=== PATIENT | male | born 1970 | race African-American/Black ===

== ENCOUNTER 2022-09-01 21:12 | Inpatient (IN) | payer OTHER ==
[~2022-09-01] VITALS: Ht 157.5 cm; Wt 74.8 kg
[2022-09-01] MEDS ORDERED: ASPIRIN 81MG TABLET PO ONE (21:30)
[2022-09-01 23:01] LABS: BASOPHILS % 0.5 % (0.0-2.0); EOSINOPHILS % 0.2 % (0.0-5.0); HEMATOCRIT. 46.6 % (42.0-52.0); LYMPHOCYTES % 8.2 % (20.0-50.0); MEAN CORPUSCULAR HEMOGLOBIN 32.4 pg (28.0-32.0); MEAN CORPUSCULAR VOLUME 88.8 fL (80.0-94.0); MEAN PLATELET VOLUME 8.4 fl (7.4-10.4); MONOCYTES % 8.1 % (2.0-8.0); PLATELET 241 x1000/uL (130-400); RED BLOOD CELL COUNT 5.25 mill/uL (4.7-6.1); RED CELL DISTRIBUTION WIDTH 12.8 % (11.6-14.6)
[2022-09-01 23:08] LABS: CHLORIDE 98 mEq/L (98-107)
[2022-09-01 23:09] LABS: PARTIAL THROMBOPLASTIN TIME 28.2 sec (23.4-31.0); PROTHROMBIN TIME 10.9 sec (9.6-11.0)
[2022-09-02] MEDS ORDERED: ALPRAZOLAM 0.5 MG TABLET PO ONE (00:45)
[2022-09-02] MEDS ORDERED: ALPRAZOLAM 0.25 MG TABLET PO NR (01:30)
[2022-09-02] MEDS ORDERED: HYDROCODONE/ACETAMINOPHEN 5/325MG TABLET PO ONE (03:15)
[2022-09-02] MEDS ORDERED: IPRATROPIUM/ALBUTEROL 0.5-3(2.5)MG/3ML NEB HHN PRN (07:15)
[2022-09-02] MEDS ORDERED: ACETAMINOPHEN 325MG TABLET PO PRN ×2 (07:15)
[2022-09-02] MEDS ORDERED: GUAIFENESIN 200MG/10ML SUGAR FREE UDC PO PRN (07:15)
[2022-09-02] MEDS ORDERED: DOCUSATE SODIUM 100MG CAPSULE PO PRN (07:15)
[2022-09-02] MEDS ORDERED: MAGNESIUM/ALUMINUM HYDROXIDE/SIMETHICONE 30ML UDC PO PRN (07:15)
[2022-09-02] MEDS ORDERED: CLONIDINE 0.1MG TABLET PO PRN ×2 (07:15→20:45)
[2022-09-02] MEDS ORDERED: ONDANSETRON HCL 4MG/2ML INJ IV PRN (07:15)
[2022-09-02] MEDS ORDERED: AZITHROMYCIN 500 MG TABLET PO NR (11:00)
[2022-09-02] MEDS ORDERED: OXYMETAZOLINE HCL NASAL SPRAY 15ML BOTHNSTRLS PRN (13:30)
[2022-09-02] MEDS ORDERED: HYDROCODONE/ACETAMINOPHEN 5/325MG TABLET PO PRN (13:30)
[2022-09-02 13:42] VITALS: BP 126/78
[2022-09-02 13:53] VITALS: BP 126/78
[2022-09-02] MEDS: LISINOPRIL 2.5MG TABLET PO SCH (14:17)
[2022-09-02] MEDS: ENOXAPARIN 40MG/0.4ML SYR SUBCUT SCH (14:17)
[2022-09-02] MEDS ORDERED: LIP40 PO (14:59)
[2022-09-02] MEDS ORDERED: LISI2.5T47 PO (14:59)
[2022-09-02 16:00] VITALS: BP 131/75
[2022-09-02] MEDS ORDERED: NALOXONE HCL 0.4MG/ML VIAL IV PRN (17:15)
[2022-09-02 20:00] VITALS: BP 108/66
[2022-09-02] MEDS ORDERED: AMLODIPINE 10MG TABLET PO SCH (20:37)
[2022-09-02] MEDS ORDERED: ATORVASTATIN CALCIUM 40MG TABLET PO SCH (21:00)
[2022-09-02] MEDS ORDERED: FAMOTIDINE 20MG TABLET PO SCH (21:00)
[2022-09-03] VITALS: BP 133/77
[2022-09-03 04:00] VITALS: BP 125/78
[2022-09-03 06:35] LABS: BASOPHILS % 0.7 % (0.0-2.0); EOSINOPHILS % 3.4 % (0.0-5.0); HEMATOCRIT. 45.5 % (42.0-52.0); HEMOGLOBIN. 16.2 g/dL (14.0-18.0); LYMPHOCYTES % 16.2 % (20.0-50.0); MEAN CORPUSCULAR HEMOGLOBIN 32.1 pg (28.0-32.0); MEAN CORPUSCULAR VOLUME 89.9 fL (80.0-94.0); MEAN PLATELET VOLUME 8.7 fl (7.4-10.4); NEUTROPHILS % 70.7 % (40.0-76.0); PLATELET 216 x1000/uL (130-400); RED BLOOD CELL COUNT 5.07 mill/uL (4.7-6.1)
[2022-09-03 08:00] VITALS: BP 124/81
[2022-09-03 08:08] LABS: CHLORIDE 104 mEq/L (98-107)
[2022-09-03 08:22] LABS: HDL CHOLESTEROL 48 mg/dL (40-59); LDL CHOLESTEROL 50 mg/dL (5-100); T4 FREE 1.44 ng/dL (0.76-1.46)
[2022-09-03 08:53] LABS: *AMPHETAMINES SCREEN URINE PRESUMTIVE POSITIVE (NEGATIVE); *BARBITURATES SCREEN URINE NEGATIVE (NEGATIVE); *BENZODIAZEPINES SCREEN URINE PRESUMTIVE POSITIVE (NEGATIVE); *COCAINE SCREEN URINE NEGATIVE (NEGATIVE); CANNABINOID URINE SCREEN NEGATIVE (NEGATIVE); METHADONE URINE SCREEN NEGATIVE (NEGATIVE); OPIATES URINE SCREEN PRESUMTIVE POSITIVE (NEGATIVE); PHENCYCLIDINE URINE SCREEN NEGATIVE (NEGATIVE)
[2022-09-03] MEDS ORDERED: ASPIRIN 81MG TABLET PO SCH (09:00)
[2022-09-03] MEDS ORDERED: AZITHROMYCIN 250 MG TABLET PO SCH (09:00)
[2022-09-03] MEDS ORDERED: AZIT250T12 PO (09:14)
[2022-09-03] MEDS: LISINOPRIL 2.5MG TABLET PO SCH (09:40)
[2022-09-03] MEDS: ENOXAPARIN 40MG/0.4ML SYR SUBCUT SCH (09:40)
[2022-09-03 10:34] VITALS: BP 124/81
== END 2022-09-03 12:22 | disposition home or self-care (01) | DRG 207 ==
LOC: ER 21:12 → 7EST 09-02 00:47 → EDBEDREQTM 09-02 00:50 → EDBEDREQ 09-02 00:50 → EDBEDREQDT 09-02 00:50
PROVIDERS: ADMIT Internal Medicine; ATTEND Internal Medicine
DX: R00.2 Palpitations (principal); R65.10 Systemic inflammatory response syndrome (SIRS) of non-infectious origin without acute organ dysfunction; D72.829 Elevated white blood cell count, unspecified; I25.10 Atherosclerotic heart disease of native coronary artery without angina pectoris; E80.6 Other disorders of bilirubin metabolism; F19.10 Other psychoactive substance abuse, uncomplicated; I10 Essential (primary) hypertension; K51.90 Ulcerative colitis, unspecified, without complications; F41.9 Anxiety disorder, unspecified; K05.6 Periodontal disease, unspecified; K21.9 Gastro-esophageal reflux disease without esophagitis; K04.7 Periapical abscess without sinus; Z95.5 Presence of coronary angioplasty implant and graft; I25.2 Old myocardial infarction; Z87.891 Personal history of nicotine dependence; Z82.49 Family history of ischemic heart disease and other diseases of the circulatory system; Z88.0 Allergy status to penicillin
CPT/HCPCS: 36415; 71045; 80053; 80061; 80305; 83036; 84439; 84443; 84484; 85025; 93005; 93970; 99285; J1650